=== PATIENT | male | born 1965 | race Caucasian/White ===

== ENCOUNTER 2024-10-24 12:07 | Day surgery (SDC) | payer BC ==
--- OUTSIDE RECORDS SUMMARY | 2024-10-24 12:09 | XMS REPORT | Continuity of Care Document ---
Author Name Unknown Address [address] [place] [address] [address] th[address] Address [address] [facility]. 1 [address] [place] [address] Care Team Providers Care Block Hand Name Role Phone IRMA OLIVA Attending Clinician Unavailabl e AVERY Attending Clinician Unavailable Ingrid Mora Attending Clinician [phone] Fermin Wong Attending Clinician [phone] OSVALDO Attending Clinician Unavailable AVERY Admitting Clinician Unavailable OSVALDO Admitting Clinician Unavailable Payers Payer Name Policy Type Policy Number Effective Date Expirati on Date Source [employer] - [employer] BENEFIT SERVICES (PPO) [id number] 2021 00:00:00 [employer] - OPEN ACCESS PLUS [id number] Problems Condition Name Condition Details Condition Category Status Onset Date Resolution Date Last Treatment Date Treating Clinician Comments Source Hypertensi ve disorder Hypertensi ve Disorder Problem Active 01-07 00:00: 00 [facility] Allergies, Adverse Reactions, Alerts Allergy Name Allergy Type Status Severity Reaction(s) Onset Date Inactive Date Treating Clinician Comments Source PENICILL INS Allergy to substanc e Active Severe Rash [facility] Social History Smoking Status Start Date Stop Date Source Former Smoker [facility] Medications Ordered Medication Name Filled Medication Name Start Date Stop Date Current Medication? Ordering Clinician Indication Dosage Frequency Signature (SIG) Comments Components Source acetylcyste ine 600 mg capsule Take 2 capsules twice a day by oral route. acetylcyste ine 600 mg capsule Take 2 capsules twice a day by oral route. No 2capsul e(s) BID acetylcyst eine 600 mg capsule Take 2 capsules twice a day by oral route. [facility] albuterol sulfate HFA 90 mcg/actuati on aerosol inhaler INHALE 2 PUFFS INTO THE LUNGS EVERY 4 TO 6 HOURS albuterol sulfate HFA 90 mcg/actuati on aerosol inhaler INHALE 2 PUFFS INTO THE LUNGS EVERY 4 TO 6 HOURS No albuterol sulfate HFA 90 mcg/actuat ion aerosol inhaler INHALE 2 PUFFS INTO THE LUNGS EVERY 4 TO 6 HOURS [facility] alprazolam 0.5 mg tablet INSTRUCTION S WILL BE GIVEN AT OFFICE alprazolam 0.5 mg tablet INSTRUCTION S WILL BE GIVEN AT OFFICE No alprazolam 0.5 mg tablet INSTRUCTIO NS WILL BE GIVEN AT OFFICE [facility] amlodipine 10 mg-valsarta n 160 mg tablet TAKE 1 TABLET BY MOUTH EVERY DAY amlodipine 10 mg-valsarta n 160 mg tablet TAKE 1 TABLET BY MOUTH EVERY DAY No amlodipine 10 mg-valsart an 160 mg tablet TAKE 1 TABLET BY MOUTH EVERY DAY [facility] azithromyci n 250 mg tablet TAKE 2 TABLETS BY MOUTH TODAY, THEN TAKE 1 TABLET DAILY FOR 4 DAYS azithromyci n 250 mg tablet TAKE 2 TABLETS BY MOUTH TODAY, THEN TAKE 1 TABLET DAILY FOR 4 DAYS No azithromyc in 250 mg tablet TAKE 2 TABLETS BY MOUTH TODAY, THEN TAKE 1 TABLET DAILY FOR 4 DAYS [facility] fenofibrate nanocrystal lized 145 mg tablet TAKE 1 TABLET BY MOUTH EVERY DAY fenofibrate nanocrystal lized 145 mg tablet TAKE 1 TABLET BY MOUTH EVERY DAY No fenofibrat e nanocrysta llized 145 mg tablet TAKE 1 TABLET BY MOUTH EVERY DAY [facility] moxifloxaci n 0.5 % eye drops INSTILL 1 DROP INTO BOTH EYES FOUR TIMES A DAY FOR 7 DAYS moxifloxaci n 0.5 % eye drops INSTILL 1 DROP INTO BOTH EYES FOUR TIMES A DAY FOR 7 DAYS No moxifloxac in 0.5 % eye drops INSTILL 1 DROP INTO BOTH EYES FOUR TIMES A DAY FOR 7 DAYS [facility] prednisolon e acetate 1 % eye drops,suspe nsion INSTILL 1 DROP INTO BOTH EYES FOUR TIMES A DAY FOR 7 DAYS prednisolon e acetate 1 % eye drops,suspe nsion INSTILL 1 DROP INTO BOTH EYES FOUR TIMES A DAY FOR 7 DAYS No prednisolo ne acetate 1 % eye drops,susp ension INSTILL 1 DROP INTO BOTH EYES FOUR TIMES A DAY FOR 7 DAYS [facility] prednisone 20 mg tablet TAKE 1 TABLET BY MOUTH TWICE A DAY FOR 5 DAYS prednisone 20 mg tablet TAKE 1 TABLET BY MOUTH TWICE A DAY FOR 5 DAYS No prednisone 20 mg tablet TAKE 1 TABLET BY MOUTH TWICE A DAY FOR 5 DAYS [facility] promethazin e-DM 6.25 mg-15 mg/5 mL oral syrup TAKE 5 ML BY MOUTH EVERY 4 TO 6 HOURS promethazin e-DM 6.25 mg-15 mg/5 mL oral syrup TAKE 5 ML BY MOUTH EVERY 4 TO 6 HOURS No promethazi ne-DM 6.25 mg-15 mg/5 mL oral syrup TAKE 5 ML BY MOUTH EVERY 4 TO 6 HOURS [facility] rosuvastati n 10 mg tablet TAKE 1 TABLET (10 MG TOTAL) BY MOUTH 1 (ONE) TIME EACH DAY rosuvastati n 10 mg tablet TAKE 1 TABLET (10 MG TOTAL) BY MOUTH 1 (ONE) TIME EACH DAY No rosuvastat in 10 mg tablet TAKE 1 TABLET (10 MG TOTAL) BY MOUTH 1 (ONE) TIME EACH DAY [facility] clonidine HCl 0.1 mg tablet Take 1 tablet every day by oral route. clonidine HCl 0.1 mg tablet Take 1 tablet every day by oral route. No 1 Q1D clonidine HCl 0.1 mg tablet Take 1 tablet every day by oral route. [facility] Vital Signs Vital Name Observation Time Observation Value Comments S ource BP Diastolic 2022-01-07 00:00:00 102 mm[Hg] [facility] Height 2022-01-07 00:00:00 71 [in_i] [facility] BMI (Body Mass Index) 2022-01-07 00:00:00 45.8 kg/m2 [facility] BP Systolic 2022-01-07 00:00:00 180 mm[Hg] [facility] Body Weight 2022-01-07 00:00:00 5254.4 [oz_av] [facility] BP Diastolic 2021-12-04 00:00:00 81 mm[Hg] [facility] BP Systolic 2021-12-04 00:00:00 137 mm[Hg] [facility] Body Weight 2021-12-04 00:00:00 5216 [oz_av] [facility] Procedures Procedure Date / Time Performed Performing Clinicia n Source Tonsillectomy [facility] Procedure on Wrist [facility] Hernia Repair [facility] Plan of Care Planned Activity Planned Date Details Comments Source Instructions [facility] Encounters Start Date/Time End Date/Time Encounter Type Admission Type Attending Clinicians Care Facility Care Department Encounter ID Source 2023-05-08 17:46:00 2023-05-08 20:48:00 Emergency ER IRMA OLIVA [facility] [id number] [facility] 2022-01-08 10:28:00 2022-01-08 10:28:00 Outpatient SISSON_C [facility] [id number] [facility] 2022-01-07 05:45:00 2022-01-07 05:45:00 Outpatient [facility]ISSON[facility]C [facility] [id number] [facility] 2022-01-07 00:00:00 2022-01-07 00:00:00 Outpatient Ingrid Mora [facility] [id number] 2022-01-07 00:00:00 2022-01-07 00:00:00 Outpatient Ingrid Mora [facility] [id number] 2022-01-07 00:00:00 2022-01-07 00:00:00 IRASEMA IvanHAZARDOUS MATERIALS WASTE TECHNICIAN-C: [address] [place] [address], [address], [place] [address] , Ph. [facility] [id number] [facility] 2021-12-05 11:42:00 2021-12-05 11:42:00 Outpatient [facility]ISSON[facility]C [facility] [id number] [facility] 2021-12-05 11:42:00 2021-12-05 11:42:00 Outpatient SISSON_C [facility] [id number] [facility] 2021-12-04 04:02:00 2021-12-04 04:02:00 Outpatient SISSON_C [facility] [id number] [facility] 2021-12-04 00:00:00 2021-12-04 00:00:00 Outpatient Fermin Wong [facility] [id number] 2021-12-04 00:00:00 2021-12-04 00:00:00 CHICO Daniels, CONCRETE WORKER, WRITING TUTOR-C: [address], [place] [address] , Ph. [facility], CHICO Daniels, WRITING TUTOR-C [id number] [facility] 2021-11-18 09:28:00 2021-11-18 09:28:00 Outpatient WATERS_S [facility] [id number] [facility] 2021-11-17 05:27:00 2021-11-17 05:27:00 Outpatient WATERS_S [facility] [id number] [facility]
[2024-10-24] MEDS ORDERED: FAMOTIDINE 20 MG/2 ML VIAL IV ONE (12:26)
[2024-10-24] MEDS ORDERED: NA CHLORIDE 0.9% 1,000 ML ONE ×3 (12:26→15:24)
[2024-10-24] MEDS ORDERED: ONDANSETRON 4 MG/2 ML VIAL ONE ×2 (12:26→16:18)
[2024-10-24] MEDS ORDERED: HYDROMORPHONE HCL 1 MG/ML INJ ONE ×2 (12:26→13:16)
[2024-10-24 12:58] LABS: Specific Gravity 1.018 (1.005-1.030); Urine Bilirubin NEGATIVE (Negative); Urine Blood Negative (Negative); Urine Clarity Clear (Clear); Urine Color Light-Yellow (Yellow); Urine Glucose NEGATIVE (Negative); Urine Ketones NEGATIVE (Negative); Urine Microscopic Reflex YN NO UMIC; Urine Nitrite NEGATIVE (Negative); Urine Protein NEGATIVE (Negative); Urine Urobilinogen Normal (Normal); Urine pH 6.5 (5.0-7.0)
[2024-10-24 13:15] LABS: Absolute Eosinophils 0.1 K/uL (0-0.5); Absolute Lymphocytes (CBC) 1.1 K/uL (0.7-4.9); Absolute Monocytes 1.3 K/uL (0.1-1.3); Absolute Neutrophil 8.8 K/uL (1.8-8.0); Basophils % 0.4 % (0-1.3); Eosinophils % 1.1 % (0-4.4); Hematocrit 48.1 % (39.6-49.0); Hemoglobin 15.6 g/dL (13.6-17.9); Lymphocytes % 9.4 % (15.3-44.8); MCH 28.4 pg (27.0-35.0); MCHC 32.4 g/dL (32.0-36.0); MCV 87.5 fL (80-100); Monocytes % 11.6 % (3.3-12.3); Neutrophils % 77.5 % (41.7-73.7); Nucleated Red Blood Cells % 0.1 % (0-0); Platelets 227 thou/uL (152-406); RBC Red Blood Cell Count 5.49 M/uL (4.33-5.43); Red Cell Distribution Width 15.2 % (12.1-15.2)
[2024-10-24 13:16] LABS: PT Prothrombin Time 12.1 SECONDS (9.4-12.5); Protime INR 1.15
[2024-10-24 13:32] LABS: Albumin 3.8 g/dL (3.4-5.0); Bilirubin Direct 0.4 mg/dL (0-0.2); Bilirubin Total 1.4 mg/dL (0.2-1.0); Globulin 3.8 g/dL (2.3-3.5); Magnesium 2.2 mg/dL (1.6-2.4); Protein, Total 7.6 g/dL (6.4-8.2)
--- NOTE | 2024-10-24 14:27 | RAD REPORT ---
EXAMINATION: CT ABDOMEN AND PELVIS WITHOUT CONTRAST CLINICAL INDICATION: Abdominal pain TECHNIQUE: CT abdomen and pelvis was performed, as per department protocol. IV contrast and oral was not administered.Axial, sagittal and coronal reconstructions were obtained. One or more of the following dose reduction techniques were used: Automated exposure control, adjustment of the mA and/o r kV according to the patient size, and/or iterative reconstruction. Unless otherwise specified, incidental findings do not require dedicated imaging follow-up. [id number]. COMPARISON: No prior exam. FINDINGS: The lack of intravenous and oral contrast limits evaluation of solid organs, vessels and bowel. Mild to moderate right hydronephrosis. Right perirenal stranding. Multiple right renal calculi. 7 mm calculus within the mid right ureter. Left renal cortical thinning. No hydronephrosis. Metallic structures within the inguinal regions presumably sequela of prior surgery. No evidence of diverticulitis. Normal appendix Mild anterior subluxation L5 on S1. Spondylolysis L5. 6 mm nodule left lower lobe Small umbilical hernia IMPRESSION: 7 mm calculus mid right ureter resulting in mild to moderate right hydronephrosis 6 mm nodule left lower lobe. Per Fleischner criteria obtain a CT at 6-12 months, then consider CT at 18-24 months
[2024-10-24] MEDS ORDERED: TAMSULOSIN 0.4 MG SR CAP ONE (14:52)
[2024-10-24] MEDS ORDERED: CEFTRIAXONE 1000 MG/VIAL ONE (14:52)
--- NOTE | 2024-10-24 15:01 | RAD REPORT ---
Procedure: Chest Single View HISTORY: Chest pain COMPARISON: none FINDINGS: The lungs appear clear of acute infiltrate. No significant pleural effusion noted. The heart is normal size. IMPRESSION: No acute abnormality is displayed.
[2024-10-24] MEDS ORDERED: propofoL 200 MG/20 ML VIAL IV ONE (16:18)
[2024-10-24] MEDS ORDERED: LIDOCAINE 1% MPF 5 ML VIAL ONE (16:18)
[2024-10-24] MEDS ORDERED: MIDAZOLAM HCL 2 MG/2 ML INJ ONE (16:18)
[2024-10-24] MEDS ORDERED: FENTANYL CITR 100 MCG/2 ML ONE (16:18)
--- NOTE | 2024-10-24 16:18 | EDPHYS ---
Physician Documentation [facility]ly [facility] Name: Robert Faustin Age: 59 yrs Sex: Male : 1965 Arrival Date: 10/24/2024 Time: 12:07 Bed 10 Private MD: KATERINE Physician Jhony Nath HPI: 10/24 15:17 This 59 yrs old Male presents to ER via Ambulatory with complaints of pedro pablo Abdominal Pain. 15:17 The patient presents with abdominal pain right lower quadrant. Onset: The pedro pablo symptoms/episode began/occurred 5 day(s) ago. The patient complains of pain in the right mid back and right low back. The pain radiates. Onset: The symptoms/episode began/occurred 5 day(s) ago. Modifying factors: The symptoms are alleviated by nothing. the symptoms are aggravated by nothing. The symptoms radiate to the right flank. Historical: - Allergies: 12:20 PENICILLINS; ld1 - PMHx: 12:20 Hypertensive disorder; Hypercholesterolemia; ld1 - Immunization history:: Adult Immunizations up to date. - Infectious Disease History:: Denies. - Social history:: Smoking status: Patient denies any tobacco usage or history of. - Family history:: not pertinent. ROS: 15:17 Constitutional: Negative for fever, chills, and weight loss, Eyes: Negative for injury, pedro pablo pain, redness, and discharge, ENT: Negative for injury, pain, and discharge, Neck: Negative for injury, pain, and swelling, Cardiovascular: Negative for chest pain, palpitations, and edema, Respiratory: Negative for shortness of breath, cough, wheezing, and pleuritic chest pain, : Negative for injury, bleeding, discharge, and swelling, MS/Extremity: Negative for injury and deformity, Skin: Negative for injury, rash, and discoloration, Neuro: Negative for headache, weakness, numbness, tingling, and seizure, Psych: Negative for depression, anxiety, suicide ideation, homicidal ideation, and hallucinations, Allergy/Immunology: Negative for hives, rash, and allergies, Endocrine: Negative for neck swelling, polydipsia, polyuria, polyphagia, and marked weight changes, Hematologic/Lymphatic: Negative for swollen nodes, abnormal bleeding, and unusual bruising, 15:17 Abdomen/GI: Positive for nausea, abdominal cramps, of the anterior aspect of right lateral abdomen and posterior aspect of right lateral abdomen, Exam: 15:17 Constitutional: This is a well developed, well nourished patient who is awake, alert, pedro pablo and in no acute distress. Head/Face: Normocephalic, atraumatic. Eyes: Pupils equal round and reactive to light, extra-ocular motions intact. Lids and lashes normal. Conjunctiva and sclera are non-icteric and not injected. Cornea within normal limits. Periorbital areas with no swelling, redness, or edema. ENT: Nares patent. No nasal discharge, no septal abnormalities noted. Tympanic membranes are normal and external auditory canals are clear. Oropharynx with no redness, swelling, or masses, exudates, or evidence of obstruction, uvula midline. Mucous membranes moist. Neck: Trachea midline, no thyromegaly or masses palpated, and no cervical lymphadenopathy. Supple, full range of motion without nuchal rigidity, or vertebral point tenderness. No Meningismus. Chest/axilla: Normal chest wall appearance and motion. Nontender with no deformity. No lesions are appreciated. Cardiovascular: Regular rate and rhythm with a normal S1 and S2. No gallops, murmurs, or rubs. Normal PMI, no JVD. No pulse deficits. Respiratory: Lungs have equal breath sounds bilaterally, clear to auscultation and percussion. No rales, rhonchi or wheezes noted. No increased work of breathing, no retractions or nasal flaring. Back: No spinal tenderness. No costovertebral tenderness. Full range of motion. Male : Normal genitalia with no discharge or lesions. Skin: Warm, dry with normal turgor. Normal color with no rashes, no lesions, and no evidence of cellulitis. MS/ Extremity: Pulses equal, no cyanosis. Neurovascular intact. Full, normal range of motion., bilateral aka Neuro: Awake and alert, GCS 15, oriented to person, place, time, and situation. Cranial nerves II-XII grossly intact. Motor strength 5/5 in all extremities. Sensory grossly intact. Cerebellar exam normal. Normal gait. Psych: Awake, alert, with orientation to person, place and time. Behavior, mood, and affect are within normal limits. 15:17 ECG was reviewed by the Attending Physician. 15:17 Abdomen/GI: Inspection: distension, Bowel sounds: normal, Palpation: moderate abdominal tenderness, in the anterior aspect of right lateral abdomen, posterior aspect of right lateral abdomen and right lower quadrant, Liver: no appreciated palpable abnormalities, Hernia: not appreciated, Vital Signs: 12:21 BP 179 / 99; Pulse 86; Resp 18; Temp 98.1(O); Pulse Ox 99% on R/A; Weight 144.24 kg; ld1 Height 5 ft. 10 in. ; Pain 8/10; 14:13 BP 151 / 76; Pulse 84; Resp 18; Pulse Ox 100% on R/A; ld1 15:03 BP 146 / 79; Pulse 79; Resp 18; Pulse Ox 99% on R/A; Pain 3/10; ld1 12:21 Body Mass Index 45.63 (144.24 kg, 177.8 cm) ld1 12:21 Pain Scale: Adult ld1 15:03 Pain Scale: Adult ld1 MDM: 12:13 Medical Screening Exam initiated [facility] 10/24 12:53 Order name: Basic Metabolic Panel; Complete Time: 13:37 [facility] 10/24 12:53 Order name: Liver (Hepatic) Function; Complete Time: 13:37 [facility] 10/24 12:53 Order name: Troponin High Sensitivity; Complete Time: 13:37 [facility] 10/24 12:53 Order name: NT PRO-BNP; Complete Time: 13:37 [facility] 10/24 12:53 Order name: Magnesium; Complete Time: 13:37 [facility] 10/24 12:53 Order name: CBC with Automated Diff; Complete Time: 13:37 [facility] 10/24 12:53 Order name: Protime (+INR) [facility] 10/24 12:53 Order name: Urinalysis w/ reflexes [facility] 10/24 12:58 Order name: Urinalysis w/ reflexes; Complete Time: 13:37 [facility] 10/24 13:16 Order name: Protime (+INR); Complete Time: 13:37 [facility] 10/24 12:15 Order name: XRAY Chest (1 view) [facility] 10/24 13:38 Order name: CT Abd/Pelvis - Without Contrast; Complete Time: 14:42 [facility] 10/24 12:15 Order name: Cardiac monitoring; Complete Time: 12:24 [facility] 10/24 12:15 Order name: EKG - Nurse/Tech; Complete Time: 12:45 [facility] 10/24 12:15 Order name: IV Saline Lock; Complete Time: 12:46 pedro pablo 10/24 12:15 Order name: Labs collected and sent; Complete Time: 12:46 [place] 10/24 12:15 Order name: O2 Per Protocol; Complete Time: 12:10/24 12:15 Order name: O2 Sat Monitoring; Complete Time: 12:23 ped[place] pablo 10/24 15:07 Order name: NPO; Complete Time: 15:15 pedro pablo EC:17 Rate is 82 beats/min. Rhythm is regular. QRS Proctor is Normal. FL interval is prolonged pedro pablo at 220 msec. QRS interval is normal. QT interval is normal. No Q waves. T waves are Normal. Clinical impression: NSR w/ Non-specific ST/T Changes, 1st degree heart block, and No evidence of ischemia. Interpreted by me. Reviewed by me. Administered Medications: 12:37 Drug: NS 0.9% IV 1000 ml IV at 1000 ml once; to be given as a bolus over 60 minutes ld1 Route: IV; Rate: 1000 ml; Site: right antecubital; 14:16 Follow up: Response: No adverse reaction; IV Status: Completed infusion; IV Intake: ld1 1000ml 12:37 Drug: Famotidine IVP 20 mg IVP once; dilute with 10 mL 0.9% NaCl; give over 2 minutes ld1 Route: IVP; Site: right antecubital; 12:47 Follow up: Response: No adverse reaction ld1 12:38 Drug: Ondansetron IVP 4 mg IVP once; over 2 minutes Route: IVP; Site: right antecubital;ld1 14:16 Follow up: Response: No adverse reaction ld1 12:38 Drug: HYDROmorphone IVP 1 mg IVP once; Verbal order per Dr. Nath Route: IVP; Site: ld1 right antecubital; 13:26 Follow up: Response: No adverse reaction; Pain is unchanged, physician notified ld1 13:26 Drug: HYDROmorphone IVP 1 mg IVP once; vERBAL ORDER PER DR. NATH Route: IVP; Site: ld1 right antecubital; 14:12 Follow up: Response: No adverse reaction ld1 14:12 Drug: NS 0.9% IV 1000 ml IV at 1000 ml once; to be given as a bolus over 60 minutes ld1 Route: IV; Rate: 1000 ml; Site: right antecubital; 15:01 Follow up: Response: No adverse reaction; IV Status: Completed infusion; IV Intake: ld1 1000ml 15:00 Drug: Flomax PO 0.4 mg PO once Route: PO; ld1 15:00 Drug: Rocephin IV 1 grams IV at per protocol once; Given slow IV push per pharmacy ld1 instructions Route: IV; Rate: per protocol; Site: right antecubital; 15:31 Drug: NS 0.9% IV 1000 ml IV at 1000 ml once; to be given as a bolus over 60 minutes ld1 Route: IV; Rate: 1000 ml; Site: right antecubital; 16:24 Follow up: Response: No adverse reaction; IV Status: Completed infusion; IV Intake: ld1 1000ml Disposition Summary: 10/24/24 16:18 Hospitalization Ordered Notes: Hospitalization Status: Observation pedro pablo Provider: Efraín Puente cha Location: DAY SURGERY OTHER pedro pablo Condition: Stable pedro pablo Problem: new pedro pablo Symptoms: have worsened pedro pablo Bed/Room Type: Standard [facility] Room Assignment: [facility] Diagnosis - Acute kidney failure, unspecified pedro pablo - Hydronephrosis with renal and ureteral calculous obstruction - 7 MM RIGHT MID URETERcha - Solitary pulmonary nodule [facility] Discharge Instructions: - Discharge Summary Sheet pedro pablo - Kidney Stones pedro pablo - Kidney Stones, [id number] pedro pablo - Hydronephrosis pedro pablo - Acute Kidney Injury, Adult pedro pablo - Pulmonary Nodule pedro pablo - Dietary Guidelines to Help Prevent Kidney Stones pedro pablo - Pulmonary Nodule, Qdgy-in-Ahne pedro pablo Forms: - Medication Reconciliation Form pedro pablo - SBAR form pedro pablo - Leadership Thank You Letter [facility] Prescriptions: - Flomax 0.4 mg Oral capsule - take 1 capsule ORAL route once; 30 capsule; Refills: 0, Product Selection pedro pablo Permitted - acetaminophen-codeine 300-30 mg Oral tablet - take 2 tablet ORAL route every 6 hours as needed for pain; 24 tablet; Refills: pedro pablo 0, Product Selection Permitted - ondansetron 4 mg Oral Tablet,disintegrating - take 1 tablet ORAL route every 6-8 hours for 5 days; 24 tablet; Refills: 0, [facility] Product Selection Permitted - Cipro 500 mg Oral Tablet - take 1 tablet ORAL route every 12 hours for 7 days; 14 tablet; Refills: 0, [facility] Product Selection Permitted Signatures: Dispatcher [employer] EDMS Sidney, Jhony, MD MD pedro pablo Brown, Bessie, RN RN ld1 Corrections: (The following items were deleted from the chart) 12:15 12:15 Chest Single View+RAD.RAD.BRZ ordered. EDMS EDMS 12:16 12:16 Abdomen Pelvis W Con+CT.RAD.BRZ ordered. EDMS EDMS 13:41 12:20 Abdomen ordered. EDMS EDMS 15:12 12:15 BASIC METABOLIC PANEL+C.LAB.BRZ ordered. EDMS EDMS 15:12 12:15 HEPATIC FUNCTION+C.LAB.BRZ ordered. EDMS EDMS 15:13 12:15 CBC+H.LAB.BRZ ordered. EDMS EDMS 15:13 12:15 MAGNESIUM+C.LAB.BRZ ordered. EDMS EDMS 15:13 12:15 PROBNP+C.LAB.BRZ ordered. EDMS EDMS 15:13 12:15 Troponin High Sensitivity+C.LAB.BRZ ordered. EDMS EDMS 15:13 12:15 LIPASE+C.LAB.BRZ ordered. EDMS EDMS 15:14 12:15 Urinalysis+U.LAB.BRZ ordered. EDMS EDMS 15:16 12:15 PROTIME (+INR)+COAG.LAB.BRZ ordered. EDMS EDMS
--- NOTE | 2024-10-24 16:18 | ER ---
Nurse's Notes [facility] Name: Robert Faustin Age: 59 yrs Sex: Male : 1965 Arrival Date: 10/24/2024 Time: 12:07 Bed 10 Private MD: Diagnosis: Acute kidney failure, unspecified;Hydronephrosis with renal and ureteral calculous obstruction-7 MM RIGHT MID URETER;Solitary pulmonary nodule Presentation: 10/24 12:21 Chief complaint: Patient states: Right sided abdominal pain X 5 days - intermittent ld1 pain radiates to scrotum and pelvis. Coronavirus screen: At this time, the client does not indicate any symptoms associated with coronavirus-19. Ebola Screen: No symptoms or risks identified at this time. Initial Sepsis Screen: Does the patient meet any 2 criteria? No. Patient's initial sepsis screen is negative. Does the patient have a suspected source of infection? No. Patient's initial sepsis screen is negative. Risk Assessment: Do you want to hurt yourself or someone else? Patient reports no desire to harm self or others. Onset of symptoms was October 24, 2024. 12:21 Method Of Arrival: Ambulatory ld1 12:21 Acuity: TARA 3 ld1 Triage Assessment: 12:21 General: Appears in no apparent distress. uncomfortable, Behavior is calm, cooperative, ld1 appropriate for age. Pain: Complains of pain in abdomen Pain radiates to pelvis Pain currently is 8 out of 10 on a pain scale. Quality of pain is described as throbbing, Pain began 5 days Is continuous. EENT: No signs and/or symptoms were reported regarding the EENT system. Neuro: Level of Consciousness is awake, alert, obeys commands, Oriented to person, place, time, situation. Cardiovascular: Capillary refill < 3 seconds Patient's skin is warm and dry. Respiratory: Airway is patent Respiratory effort is even, unlabored. GI: Abdomen is round non-distended. GI: Reports lower abdominal pain, upper abdominal pain. : No signs and/or symptoms were reported regarding the genitourinary system. Derm: No signs and/or symptoms reported regarding the dermatologic system. Musculoskeletal: No signs and/or symptoms reported regarding the musculoskeletal system. Historical: - Allergies: 12:20 PENICILLINS; ld1 - PMHx: 12:20 Hypertensive disorder; Hypercholesterolemia; ld1 - Immunization history:: Adult Immunizations up to date. - Infectious Disease History:: Denies. - Social history:: Smoking status: Patient denies any tobacco usage or history of. - Family history:: not pertinent. Screenin:13 [facility] ED Fall Risk Assessment (Adult) History of falling in the last 3 months, ld1 including since admission No falls in past 3 months (0 pts) Confusion or Disorientation No (0 pts) Intoxicated or Sedated No (0 pts) Impaired Gait No (0 pts) Mobility Assist Device Used No (0 pt) Altered Elimination No (0 pt) Score/Fall Risk Level 0 - 2 = Low Risk Oriented to surroundings, Maintained a safe environment, Educated pt \T\ family on fall prevention, incl call for assistance when getting out of bed, Assessed \T\ reinforced patient's understanding of fall precautions, Provided non-skid footwear, Hourly rounding (assess needs \T\ fall precautionary measures) done, Used ambulatory aids as needed (educated on \T\ assisted with), Used gait belt as appropriate. Abuse screen: Denies threats or abuse. Denies injuries from another. Nutritional screening: No deficits noted. Tuberculosis screening: No symptoms or risk factors identified. Assessment: 14:13 Reassessment: See triage assessment. ld1 15:03 Reassessment: Patient appears in no apparent distress at this time. No changes from ld1 previously documented assessment. Patient and/or family updated on plan of care and expected duration. Pain level reassessed. Patient is alert, oriented x 3, equal unlabored respirations, skin warm/dry/pink. 16:09 Reassessment: Patient appears in no apparent distress at this time. No changes from ld1 previously documented assessment. Patient and/or family updated on plan of care and expected duration. Pain level reassessed. Dr. Puente at bedside explains results and plan of care. Vital Signs: 12:21 BP 179 / 99; Pulse 86; Resp 18; Temp 98.1(O); Pulse Ox 99% on R/A; Weight 144.24 kg; ld1 Height 5 ft. 10 in. ; Pain 8/10; 14:13 BP 151 / 76; Pulse 84; Resp 18; Pulse Ox 100% on R/A; ld1 15:03 BP 146 / 79; Pulse 79; Resp 18; Pulse Ox 99% on R/A; Pain 3/10; ld1 12:21 Body Mass Index 45.63 (144.24 kg, 177.8 cm) ld1 12:21 Pain Scale: Adult ld1 15:03 Pain Scale: Adult ld1 ED Course: 12:12 Patient arrived in ED. ra3 12:13 Jhony Little MD is Attending Physician. [facility] 12:20 Bessie Brown RN is Primary Nurse. ld1 12:21 Arm band placed on right wrist. ld1 12:22 Triage completed. ld1 12:46 Inserted saline lock: 20 gauge in right antecubital area, using aseptic technique. ld1 Blood collected. Flushed with 10 mL NS. 13:53 CT Abd/Pelvis - Without Contrast In Process Unspecified. EDMS 14:13 Patient has correct armband on for positive identification. Placed in gown. Bed in low ld1 position. Call light in reach. Side rails up X2. ekg monitor on. Pulse ox on. NIBP on. Door closed. Noise minimized. Warm blanket given. 14:13 No provider procedures requiring assistance completed. ld1 14:36 XRAY Chest (1 view) In Process Unspecified. EDMS 16:15 Efraín Puente MD is Hospitalizing Provider. pedro pablo 16:24 Patient admitted, IV remains in place. ld1 19:14 Primary Nurse role handed off by Bessie Brown, COLETTE [facility] Administered Medications: 12:37 Drug: NS 0.9% IV 1000 ml IV at 1000 ml once; to be given as a bolus over 60 minutes ld1 Route: IV; Rate: 1000 ml; Site: right antecubital; 14:16 Follow up: Response: No adverse reaction; IV Status: Completed infusion; IV Intake: ld1 1000ml 12:37 Drug: Famotidine IVP 20 mg IVP once; dilute with 10 mL 0.9% NaCl; give over 2 minutes ld1 Route: IVP; Site: right antecubital; 12:47 Follow up: Response: No adverse reaction ld1 12:38 Drug: Ondansetron IVP 4 mg IVP once; over 2 minutes Route: IVP; Site: right antecubital;ld1 14:16 Follow up: Response: No adverse reaction ld1 12:38 Drug: HYDROmorphone IVP 1 mg IVP once; Verbal order per Dr. Little Route: IVP; Site: ld1 right antecubital; 13:26 Follow up: Response: No adverse reaction; Pain is unchanged, physician notified ld1 13:26 Drug: HYDROmorphone IVP 1 mg IVP once; vERBAL ORDER PER DR. LITTLE Route: IVP; Site: ld1 right antecubital; 14:12 Follow up: Response: No adverse reaction ld1 14:12 Drug: NS 0.9% IV 1000 ml IV at 1000 ml once; to be given as a bolus over 60 minutes ld1 Route: IV; Rate: 1000 ml; Site: right antecubital; 15:01 Follow up: Response: No adverse reaction; IV Status: Completed infusion; IV Intake: ld1 1000ml 15:00 Drug: Flomax PO 0.4 mg PO once Route: PO; ld1 15:00 Drug: Rocephin IV 1 grams IV at per protocol once; Given slow IV push per pharmacy ld1 instructions Route: IV; Rate: per protocol; Site: right antecubital; 15:31 Drug: NS 0.9% IV 1000 ml IV at 1000 ml once; to be given as a bolus over 60 minutes ld1 Route: IV; Rate: 1000 ml; Site: right antecubital; 16:24 Follow up: Response: No adverse reaction; IV Status: Completed infusion; IV Intake: ld1 1000ml Medication: 16:24 VIS not applicable for this client. ld1 Intake: 14:16 IV: 1000ml; Total: 1000ml. ld1 15:01 IV: 1000ml; Total: 2000ml. ld1 16:24 IV: 1000ml; Total: 3000ml. ld1 Outcome: 16:18 Decision to Hospitalize by Provider. pedro pablo 16:24 Admitted to OR accompanied by tech, via wheelchair, ld1 16:24 Condition: stable 16:24 Instructed on the need for admit, 16:24 Patient left the ED. ld1 19:21 Patient left the ED. vc1 Signatures: Dispatcher [employer] EDJhony Mathur MD MD cha Sims, Lauren RN RN ld1 Clair Elizondo RN RN vc1 Erin Wing Ruby ra3
--- NOTE | 2024-10-24 16:25 | P.CNS ---
Date of Consult: 10/24/24 Reason for Consult: Obstructive ureterolithiasis Requesting Physician: Jhony Little Chief Complaint: Right lower quadrant pain History of Present Illness: 59-year-old gentleman with hypertension, prediabetes on Mounjaro, hyperchole sterolemia who presented with sudden onset of right lower quadrant pain that radiated into his scrotum starting last . He has chronic lower back pain for which she is managed with Dilaudid and meloxicam along with some muscle relaxants. He denies any prior history of ureterolithiasis, but he does acknowledge having had some scrotal pain in the past. The pain at this time is now in his right lower quadrant and no longer radiates into his scrotum. It is severe, but he denies any fever, chills, nausea or vomiting. He had blood work done in September and his baseline creatinine was 1.06 at that time. Past medical history: As above Past surgical history: Bilateral inguinal hernia repair with mesh, T and a, hand surgery Allergy: Possible penicillin/hives but he said he has had similar penicillin- based medications without issue more recently Social history: Former smoker of 8 to 10 years, 1 to 2 packs/day but quit 25 years ago Family history: His father supposedly had prostate cancer metastatic to the bones Examination: Reasonably well-appearing and in no acute distress Alert, awake, oriented x 3 No dyspnea or sign of respiratory distress Pulse 2+ radial and regular Abdomen soft, slightly tender in the right lower quadrant, morbidly obese Lying in a recliner 10/24/2024 creatinine 1.72 with EGFR 45, LFTs normal, alk phos 87, bilirubin 1.4, WBC 11.3, hemoglobin 15.6, platelets 227, UA negative, INR 1.15 10/24/2024 chest x-ray impression: No acute abnormality CT abdomen and pelvis without contrast radiologist impression: 7 mm calculus mid right ureter with mild to moderate right hydronephrosis. 6 mm nodule left lower lobe. My review of imaging: Multiple right renal calculi layering within the mid and lower pole calyces with the largest between 5 to 6 mm. Mid right ureteral calculus measuring about 6 mm associated with mild to moderate right hydronephrosis. Left renal atrophy noted. Assessment and recommendation: 59-year-old gentleman with hypertension, prediabetes on Mounjaro -last dose a week ago Wednesday, hypercholesterolemia, and chronic lower back pain on Dilaudid plus meloxicam, with atrophic left kidney and right nephrolithiasis with 6 to 7 mm obstructive mid ureterolithiasis causing right-sided hydronephrosis and MALINDA. -I counseled the patient that given the acute kidney injury noted, surgical intervention was recommended. I explained the presence of the atrophy of his left kidney and the importance of preserving the right renal function. Additionally, given the multiple right renal calculi seen, definitive management will ultimately be required. -Cystoscopy with right retrograde pyelography and right ureteral stent placement was explained to the patient in detail. Approximately 5% risk of inability to place a stent was discussed and need for percutaneous nephrostomy tube placement. Other risks of the procedure to include urethral stricture, ureteral injury, infection, and stent pain/discomfort was discussed in detail. -He last had any solid food prior to 9 AM today. -N.p.o. -He received ceftriaxone in the ER along with 3 L IV fluids. Home medications list reviewed: Yes - Past Medical/Surgical History Diabetic: Yes Physical Examination Laboratory Data (last 24 hrs) 10/24/24 10/24/24 10/24/24 12:42 12:42 12:42 WBC 11.30 H Hgb 15.6 Hct 48.1 Plt Count 227 PT 12.1 INR 1.15 Sodium 138 Potassium 4.0 BUN 18 Creatinine 1.72 H Glucose 104 Magnesium 2.2 Total Bilirubin 1.4 H AST 16 ALT 27 Alkaline Phosphatase 87 Lipase 10/24/24 10/24/24 10/24/24 12:15 12:15 12:15 WBC Cancelled Hgb Cancelled Hct Cancelled Plt Count Cancelled PT Cancelled INR Cancelled Sodium Cancelled Potassium Cancelled BUN Cancelled Creatinine Cancelled Glucose Cancelled Magnesium Cancelled Total Bilirubin Cancelled AST Cancelled ALT Cancelled Alkaline Phosphatase Cancelled Lipase Cancelled - Problems (1) Ureterolithiasis Current Visit: Yes Status: Acute (2) Hydronephrosis, right Current Visit: Yes Status: Acute (3) Right nephrolithiasis Current Visit: Yes Status: Acute (4) Left renal atrophy Current Visit: Yes Status: Acute (5) MALINDA (acute kidney injury) Current Visit: Yes Status: Acute Conclusions/Impression: see A&P in [facility] Critical Care: No Time Spent Managing Pts care (In Minutes): 30
[2024-10-24] MEDS: NA CIT/CITRIC AC 30 ML ORAL UDC ONE (16:30)
[2024-10-24] MEDS: Ringers Lactate 1,000 ML IV ONE (16:30)
[2024-10-24] MEDS ORDERED: ACETAMINOPHEN 500 MG TAB PO PRN (16:55)
[2024-10-24] MEDS ORDERED: MORPHINE 4 MG/ML SYR IV PRN (16:55)
[2024-10-24] MEDS ORDERED: ONDANSETRON 4 MG/2 ML VIAL IV PRN (16:55)
[2024-10-24] MEDS ORDERED: NA CHLORIDE 0.9% 1,000 ML IV SCH (17:00)
[2024-10-24] MEDS: MEPERIDINE HCL 25 MG/ML SYR ONE (17:19)
--- NOTE | 2024-10-24 17:38 | P.OP ---
Date of Service: 10/24/24 Preoperative diagnoses: Right ureterolithiasis Right hydronephrosis Acute kidney injury Right nephrolithiasis Atrophic left kidney Right lower quadrant pain Postoperative diagnoses: Right ureterolithiasis Right hydronephrosis Acute kidney injury Right nephrolithiasis Atrophic left kidney Right lower quadrant pain Principal procedures: Cystoscopy Right retrograde pyelography Right 6 [place] Rican by 26 cm double-J ureteral stent placement Indication for procedure: 59-year-old morbidly obese gentleman with hypertension, prediabetes on Mounjaro with last dose a week ago Wednesday, hypercholesterolemia, and chronic lower back pain on Dilaudid plus meloxicam, who was seen via the emergency department with an atrophic left kidney and right nephrolithiasis with a 6 to 7 mm obstructive mid right ureterolithiasis causing right-sided hydronephrosis and acute kidney injury. Because of the acute kidney injury, he was counseled on the recomm endation for surgical intervention and recommended for cystoscopy with right ureteral stent placement. Procedure note: Patient was consented in the preoperative holding area before being transferred to the operative suite where general anesthesia was induced. He had been given ceftriaxone IV antimicrobial therapy in the emergency department along with IV fluids. Pneumoboots were provided for DVT prophylaxis. He was placed in the lithotomy position, padded and secured to the table appropriately. His genitalia was prepped with Hibiclens and he was draped in standard fashion. The case was begun using a 22 [place]ican rigid cystoscope to traverse the urethra and into the bladder with relative ease. The bladder was decompressed of fluid and urine and then refilled with sterile saline and surveyed. No papillary mucosal lesions were noted throughout. There were some stone fragments within his bladder of insignificant size. The ureteral orifices were orthotopic in location, and I cannulated the right ureteral orifice using the tip of a 5 [place]ican ureteral access catheter. Right retrograde pyelography: Using a 70: 30 mixture of Omnipaque and saline injected via the lumen of the 5 [place]ican ureteral access catheter, the contrast did propagate up the distal into the mid and proximal ureter before entering the renal pelvis and calyces with out significant ureteral obstruction identifiable. No radiopaque calculus was visible. There was some blunting of the calyces and mild pelviectasis indicative of a degree of obstruction. As a result, I advanced a sensor wire via the 5 [place]ican ureteral access catheter coiling it within the collecting system. Fluoroscopic visualization was limited due to his obesity. I then passed over the sensor wire under direct vision a 6 [place] by 26 cm double-J ureteral stent with difficulty owing to significant resistance passing the stent over the wire, likely beyond the obstructing calculus, but ultimately successfully placing the stent into the collecting system as observed fluoroscopically with a coil in the lower pole within the opacified segments of the kidney and ureter. An additional coil was cystoscopically visible in his bladder and the kidney urine did emanate from within the stent. As a result, I decompressed his bladder of fluid and urine and remove the cystoscope. He was then taken out of the lithotomy position, awakened from general anesthesia, transferred to a stretcher, and then transferred to the recovery room in good condition. Complications: None Discharge disposition: Follow-up should be established in the urology clinic to plan repeat operative management to include right sided ureteroscopy with laser lithotripsy as well as pyeloscopy and laser lithotripsy given his nephrolithiasis. Repeat blood work will also be required to ensure resolution of his acute kidney injury.
[2024-10-24] MEDS: LABETALOL 20 MG/4ML SYRINGE IV ONE (17:45)
--- NOTE | 2024-10-24 18:00 | RAD REPORT ---
EXAMCystography CLINICAL HISTORY: Placement of a right ureteral stent FINDINGS: A total of 8 images were sent to PACS, the right ureter was cannulated and contrast administered.. N o radiologist was involved in protocoling or performance of the study, and no radiologist was present for the duration of the procedure. No interpretation of the saved images will be provided. Fluoroscopy time 0.3 minutes.
[2024-10-24] MEDS ORDERED: PHENAZOPYRIDINE 100MG TAB PO ONE (18:31)
[2024-10-24] MEDS ORDERED: HYDROCODONE/APAP 5/325 MG TAB ONE (18:31)
[2024-10-24] MEDS: PHENAZOPYRIDINE 100MG TAB PO ONE (18:37)
[2024-10-24] MEDS: HYDROCODONE/APAP 5/325 MG TAB PO PRN (18:37)
--- NOTE | 2024-10-26 11:57 | EKG ---
Test Date: 2024-10-24 Test Time: 12:48:42 Water Project Engineer: ANTONIO MEASUREMENT RESULTS: Intervals: Rate: 82 VA: 220 QRSD: 96 QT: 366 QTc: 427 [place]: P: 32 VA: 220 QRS: 31 T: 38 INTERPRETIVE STATEMENTS: Sinus rhythm with 1st degree AV block Otherwise normal ECG No previous ECG available for comparison Electronically Signed On 10-26-24 11:55:31 [employer]PER[employer]OR [employer] RO[employer] by Desmond Resendez
== END 2024-10-24 19:00 | disposition home or self-care (01) ==
LOC: ER 12:07 → DS 16:21
PROVIDERS: ATTEND Urology
PROC: 0T768DZ Dilation of Right Ureter with Intraluminal Device, Via Natural or Artificial Opening Endoscopic (ICD-10-PCS; principal; 2024-10-24 15:15)
DX: N13.2 Hydronephrosis with renal and ureteral calculous obstruction (principal); N17.9 Acute kidney failure, unspecified; N26.1 Atrophy of kidney (terminal); R10.31 Right lower quadrant pain
CPT/HCPCS: 85025; 80048; 36415; 83735; 85610; 80076; 81003; 84484; 83880; 74176; 71045; 51600; 74430; 52332; J2704; J2003; J2250; J3010; J2175; J1171 ×2; J2405 ×2; J7120; J7030 ×3; J0696; 93005; 96361; 96374; 96375; 99285

== ENCOUNTER 2024-11-21 09:00 | Day surgery (SDC) | payer BC ==
[2024-11-21] MEDS: CIPROFLOXACIN 400mg IV 400 MG/200 ML BAG IV ONE (09:50)
[2024-11-21] MEDS: NA CHLORIDE 0.9% 1,000 ML ONE (09:50)
[2024-11-21] MEDS ORDERED: MIDAZOLAM HCL 2 MG/2 ML INJ ONE (10:22)
[2024-11-21] MEDS ORDERED: ONDANSETRON 4 MG/2 ML VIAL ONE (10:22)
[2024-11-21] MEDS ORDERED: propofoL 200 MG/20 ML VIAL IV ONE (10:22)
[2024-11-21] MEDS ORDERED: LIDOCAINE 1% MPF 5 ML VIAL ONE (10:22)
[2024-11-21] MEDS ORDERED: FENTANYL CITR 100 MCG/2 ML ONE (10:22)
[2024-11-21] MEDS ORDERED: ROCURONIUM 50 MG/5 ML VIAL IV ONE (10:36)
[2024-11-21] MEDS ORDERED: dexAMETHasone 10 MG/ML VIAL ONE (11:00)
[2024-11-21] MEDS ORDERED: NEOSTIGMINE 1 MG/ML -10 ML VIAL ONE (11:53)
[2024-11-21] MEDS ORDERED: GLYCOPYRROLATE 0.2 MG/ML SYR ONE (11:53)
--- NOTE | 2024-11-21 12:05 | RAD REPORT ---
EXAMUrethrocystogrphy Retrograde CLINICAL HISTORY: Placement of a right ureteral stent FINDINGS: 14 fluoroscopic spot images obtained. Fluoroscopy time 0.5 minutes. Right ureter cannulated and contrast administered. Subsequently a ureteral stent placement. Procedure performed by Dr. Kenny
--- NOTE | 2024-11-21 12:48 | P.OP ---
Date of Service: 11/21/24 Preoperative diagnoses: Right ureterolithiasis -approximately 6 mm s/p right ureteral stent placement Right nephrolithiasis MALINDA Morbid obesity Postoperative diagnoses: Right ureterolithiasis -approximately 6 mm s/p right ureteral stent placement Right nephrolithiasis MALINDA Morbid obesity Principal procedures: Cystoscopy with right ureteral stent extraction Right retrograde pyelography Right ureteroscopy with pyeloscopy and laser lithotripsy Right ureteroscopic stone basketing Right 7 Croatian by 26 cm double-J ureteral stent exchange Indication for procedure: 59-year-old gentleman who presented via the emergency department with an obstructing ureteral calculus. He underwent operative ureteral stent placement and was discharged. He subsequently presents today for definitive management of his stones. Procedure note: The patient was consented in the preoperative holding area before being transferred to the operative suite where general anesthesia was induced. He was given ciprofloxacin 40 mg IV antimicrobial prophylaxis, and pneumoboots were provided for DVT prophylaxis. He was placed in the lithotomy position, padded and secured to the table appropriately. His genitalia was prepped with Hibiclens and he was draped in standard fashion. The case was begun using a 22 Croatian cystoscope to traverse the urethra and into his bladder with relative ease. The bladder was decompressed of fluid and urine and then refilled with sterile saline. The stent was noted to emanate from the right ureteral orifice and was minimally encrusted. I grasped the tip of the stent and was able to deliver it to the meatus leaving the proximal tip of the stent in the mid ureter. I then advanced a sensor wire through the ureteral stent ultimately coiling it putatively in the collecting system on the right side. Leaving the wire in place, I remove the stent and then performed direct vision semirigid ureteroscopy via his urethra into his bladder and into the right ureteral orifice. Navigating up the distal ureter, I ran across a couple of areas of some slight stricture narrowing, but I was able to gently bypassed this using pressurized irrigation and manipulating the ureteroscope up the ureter. In the mid ureter I did encounter the stone; so I utilized a 1.9 Croatian 0 tip nitinol basket to grasp the stone and bring it down more into the distal ureter where it would be easier to treat. I ran across at least a couple of areas of ureteral stenosis on the way. I then utilized a 272 nm laser fiber at a power setting of 0.8 J and 8 Hz to fragment the stone until the fragments were small enough to more easily pass beyond subsequent points of stricture narrowing that I ran into on the way out. There were at least 3 areas of stricture narrowing encountered that prohibited even the fragmented stones from passing and required for the laser lithotripsy to fragment the stone state even smaller fragments. Eventually, I was able to remove all of the stone fragments from the ureter and I left them in the bladder. I then placed the ureteroscope back into the distal ureter and this time performed a retrograde pyelography study. Right retrograde pyelography: Using a 70: 30 mixture of Omnipaque and saline, I injected this via the lumen of the semirigid ureteroscope which did observe the contrast propagating up the distal into the mid and proximal ureter before entering the renal pelvis and calyces. There was mild dilation of the renal pelvis and mild to moderate caliectasis. The ureter was not smooth along the course, with multiple subtle areas of narrowing along the entirety of the course, but no extravasation of contrast was noted. As a result, I advanced a Bentson guidewire via the semirigid ureteroscope and coiled it in the collecting system alongside the sensor wire as evidenced fluoroscopically. I then removed the semirigid ureteroscope and placed an 11 x 13 Croatian ureteral access sheath over the Bentson guidewire. It reached a point of obstruction in the mid distal ureter which I was able to pass by with some pressure, but ultimately I was only able to get it into the mid proximal ureter before it would no longer pass into the collecting system. As a result, I passed the flexible ureteroscope over the Bentson guidewire and was able to navigated all the way into the collecting system. I then surveyed the calyces and identified the presence of the kidney stone seen on the CT scan now in the renal pelvis. I knocked it into the upper pole calyx and there utilized the laser fiber at a power setting of 1.0 J and 15 Hz, ultimately increased to 25 Hz, to fragment and dust the stone until the fragments were no larger than 1 mm in maximal diameter, and most were smaller than that. I then surveyed into the renal pelvis and down into the lower pole calyceal system looking for additional stones, and none were noted. Because of his anatomy and the presence of a lower pole posteromedial calyx, I was unable to navigate the ureteroscope into that calyx completely; so I cannot verify completely and no additional stones within the lower pole. However I advanced the scope back into the renal pelvis and surveyed down into the proximal down into the mid and distal ureter on the way out looking for evidence of additional stones or injury, and none were noted. As a result, I backloaded the cystoscope over the indwelling sensor safety wire, and I passed a 6 Croatian by 26 cm double-J ureteral stent over the wire into the collecting system with a coil observed fluoroscopically in the renal pelvis. An additional coil was formed cystoscopically in his bladder. I then collected the stone fragments by irrigating his bladder. These were sent for chemical analysis. I then decompressed his bladder fluid and urine before removing the cystoscope. He was then taken out of the lithotomy position, awakened from general anesthesia, transferred to a stretcher, and then transferred to the recovery room in good condition. Of note, significant additional time was required with the induction of anesthesia and awakening the patient postanesthesia owing to difficulties managing his airway due to his morbid obesity, but no complications were observed. Complications: None Discharge disposition: Given the areas of stricture narrowing, I will recommend he keep the stent for at least 3 to 4 weeks before we remove it cystoscopically in the office. Subsequent follow-up will be determined based on his recurrent stone forming potential.
[2024-11-21] MEDS ORDERED: HYDROCODONE/APAP 5/325 MG TAB ONE (13:23)
[2024-11-21] MEDS ORDERED: PHENAZOPYRIDINE 100MG TAB PO ONE (13:23)
[2024-11-21] MEDS: PHENAZOPYRIDINE 100MG TAB PO ONE (13:30)
[2024-11-21] MEDS: HYDROCODONE/APAP 5/325 MG TAB PO PRN (13:30)
[2024-11-21 14:45] VITALS: BP 159/81; TEMP 97.2; O2SAT 97
== END 2024-11-21 14:20 | disposition home or self-care (01) ==
LOC: OR 09:00
PROVIDERS: ATTEND Urology
PROC: 0T768DZ Dilation of Right Ureter with Intraluminal Device, Via Natural or Artificial Opening Endoscopic (ICD-10-PCS; 2024-11-21)
PROC: 0TC68ZZ Extirpation of Matter from Right Ureter, Via Natural or Artificial Opening Endoscopic (ICD-10-PCS; principal; 2024-11-21 10:45)
DX: N20.2 Calculus of kidney with calculus of ureter (principal); N17.9 Acute kidney failure, unspecified; E66.01 Morbid (severe) obesity due to excess calories; Z68.42 Body mass index [BMI] 45.0-49.9, adult
CPT/HCPCS: 87086; 82947 ×2; 88300; 82360; 74450; 51610; 52356; J2704; J2710; J2003; J2250; J3010; J1100; J2405; J0744; J7030; 87088